=== PATIENT | male | born 1965 | race Caucasian/White ===

== ENCOUNTER 2019-11-04 09:59 | Emergency (ER) | payer OTHER, SELFPAY ==
[2019-11-04 10:25] VITALS: BP 123/83; PULSE 79; RESP 20; TEMP 36.8; O2SAT 99; BMI 24.4
[2019-11-04 10:29] VITALS: BP 123/83; PULSE 79; RESP 20; TEMP 36.8; O2SAT 99
== END 2019-11-04 10:36 | disposition home or self-care (01) ==
LOC: UTC 10:08
PROVIDERS: Emergency Provider Nurse Practitioner
DX: S61.012D Laceration without foreign body of left thumb without damage to nail, subsequent encounter (principal)